=== PATIENT | female | born 1990 | race African-American/Black ===

== ENCOUNTER 2019-01-31 16:20 | Emergency (ER) | payer OTHER ==
--- NOTE | 2019-01-31 17:00 | ED Physician Documentation ---
History of Present Illness - Stated complaint Stated Complaint: ABDOMINAL PAIN, BLEEDING, CRAMPING - Chief complaint Chief Complaint: Abd Pain - Additonal information Additional information: This is a 28-year-old female who presents with abdominal pain and cramping. She estimates she is 5 weeks by LMP. On Sunday she began having some light spotting, this has progressed and now she is having lower abdominal cramping as well as as eating. She felt a little nauseated and when she stood up earlier today she felt slightly lightheaded, she called the nurse/clinic line and they told her to come into the emergency department to get checked out. She denies dysuria. She does not know her blood type. Review of Systems Constitutional: denies: Fever Cardiac: denies: Chest pain / pressure GI: reports: Abdominal Pain : denies: Dysuria PD PAST MEDICAL HISTORY - Past Medical History Past Medical History: No - Present Medications Home Medications: Ambulatory Orders Medication Instructions Recorded Confirmed Nitrofurantoin Monohyd/M-Cryst 100 mg PO BID #10 capsule 01/31/19 [Macrobid 100 mg Capsule] Ondansetron Odt [Zofran] 4 mg TL Q6H PRN #10 tablet 01/31/19 - Allergies Allergies/Adverse Reactions: Allergies Allergy/AdvReac Type Severity Reaction Status Date / Time No Known Drug Allergies Allergy Verified 01/31/19 16:34 - Living Situation Living Arrangement: reports: At home PD ED PE NORMAL - General General: Alert and oriented X 3 - Cardiac Cardiac: RRR - Respiratory Respiratory: No respiratory distress - Abdomen Abdomen: Soft, Non tender, Non distended - Extremities Extremities: No deformity - Neuro Neuro: Alert and oriented X 3 Results - Vitals Vitals: Oxygen O2 Source Room air - Labs Labs: Microbiology 01/31/19 20:40 Urine Culture - Preliminary Urine,Clean Catch Escherichia Coli Laboratory Tests 01/31/19 01/31/19 01/31/19 17:05 17:05 17:05 WBC 11.4 H RBC 4.35 Hgb 11.7 L Hct 37.6 MCV 86.4 MCH 26.9 L MCHC 31.1 L RDW 14.8 Plt Count 317 MPV 9.5 Neut # (Auto) 8.0 H Lymph # (Auto) 2.4 [place] # (Auto) 0.8 Eos # (Auto) 0.2 Baso # (Auto) 0.1 Absolute Nucleated RBC 0.00 Nucleated RBC % 0.0 Sodium 139 Potassium 3.6 Chloride 105 Carbon Dioxide 22 Anion Gap 12.0 BUN 10 Creatinine 0.7 Estimated GFR (MDRD) 119 Glucose 85 Calcium 9.1 Total Bilirubin 0.4 AST 22 ALT 20 Alkaline Phosphatase 59 Total Protein 8.4 H Albumin 4.3 Globulin 4.1 Albumin/Globulin Ratio 1.0 Lipase 22 HCG, Quant 19.83 Urine Color Urine Clarity Urine pH Ur Specific [place] Urine Protein Urine Glucose (UA) Urine Ketones Urine Occult Blood Urine Nitrite Urine Bilirubin Urine Urobilinogen Ur Leukocyte Esterase Urine RBC Urine WBC Ur Squamous Epith Cells Urine Bacteria Ur Microscopic Review Urine Culture Comments Blood Type 01/31/19 01/31/19 01/31/19 17:05 17:05 20:40 WBC RBC Hgb Hct MCV MCH MCHC RDW Plt Count MPV Neut # (Auto) Lymph # (Auto) [place] # (Auto) Eos # (Auto) Baso # (Auto) Absolute Nucleated RBC Nucleated RBC % Sodium Potassium Chloride Carbon Dioxide Anion Gap BUN Creatinine Estimated GFR (MDRD) Glucose Calcium Total Bilirubin AST ALT Alkaline Phosphatase Total Protein Albumin Globulin Albumin/Globulin Ratio Lipase HCG, Quant Urine Color Cancelled YELLOW Urine Clarity Cancelled HAZY Urine pH Cancelled 5.0 Ur Specific [place] Cancelled >=1.030 H Urine Protein Cancelled TRACE Urine Glucose (UA) Cancelled NEGATIVE Urine Ketones Cancelled TRACE Urine Occult Blood Cancelled LARGE H Urine Nitrite Cancelled POSITIVE H Urine Bilirubin Cancelled NEGATIVE Urine Urobilinogen Cancelled 0.2 (NORMAL) Ur Leukocyte Esterase Cancelled NEGATIVE Urine RBC TNTC H Urine WBC 11-25 H Ur Squamous Epith Cells FEW Squamous Urine Bacteria Many H Ur Microscopic Review Cancelled INDICATED Urine Culture Comments Cancelled INDICATED Blood Type O POSITIVE - Rads (name of study) OB Radiology: Other (No intrauterine gestational sac) PD MEDICAL DECISION MAKING - ED course Complexity details: considered differential (Miscarriage, threatened miscarriage, UTI, anemia) ED course: Pt presents with bleeding and cramping in early . US shows no IUP, HCG is very low at 20. Pt has a mild anemia, her bleeding is the level of a typical period for her and she is hemodynamically stable, she does not appear to have significant blood loss at this time. Blood type O+. On repeat exam she is well-appearing, has a benign abdominal exam. I discussed the likely diagnosis of miscarriage, and close OB follow up to ensure HCG trends to 0. and for follow up on anemia. I also discussed return precuations. Pt;s urine suggest UTI, we will treat with a course of abx. Pt agrees and was discharged home. Departure - Departure Disposition: Home, Self Care Clinical Impression: Miscarriage UTI (urinary tract infection) Qualifiers: Urinary tract infection type: acute cystitis Hematuria presence: without hematuria Qualified Code(s): N30.00 - Acute cystitis without hematuria Follow-Up: Your,OB [Other] (Follow-up by early next week for repeat hCG level and exam) Prescriptions: Nitrofurantoin Monohyd/M-Cryst [Macrobid 100 mg Capsule] 100 mg PO BID #10 ca psule Ondansetron Odt [Zofran] 4 mg TL Q6H PRN #10 tablet PRN Reason: Nausea / Vomiting Comments: You were seen today for cramping and bleeding, your ultrasound does not show signs of a fetus within the uterus, and your hCG level is very low, this is most likely a miscarriage. You should follow-up with your OB, and have your hCG checked within the next several days to ensure that it is downtrending appropriately and not due to an abnormal . Your urine shows potential signs of infection, please take the Macrobid as prescribed. You may take Tylenol, Zofran for your symptoms. If you are having continued heavy bleeding, or severe abdominal pain return to the emergency department Discharge Date/Time: 01/31/19 21:35
[2019-01-31 17:18] LABS: BASOPHILS # (AUTO) 0.1 10^3/uL (0.0-0.1); BASOPHILS % (AUTO) 0.4 %; EOSINOPHILS # (AUTO) 0.2 10^3/uL (0.0-0.7); EOSINOPHILS % (AUTO) 1.3 %; HGB - HEMOGLOBIN 11.7 g/dL (12.0-16.0); LYMPHOCYTES # (AUTO) 2.4 10^3/uL (1.5-3.5); LYMPHOCYTES % (AUTO) 20.9 %; MEAN CORPUSCULAR HEMOGLOBIN 26.9 pg (27.0-31.0); MEAN CORPUSCULAR HGB CONC 31.1 g/dL (32.0-36.0); MEAN CORPUSCULAR VOLUME 86.4 fL (81.0-99.0); MEAN PLATELET VOLUME 9.5 fL (7.9-10.8); MONOCYTES # (AUTO) 0.8 10^3/uL (0.0-1.0); MONOCYTES % (AUTO) 6.6 %; NEUTROPHILS % (AUTO) 70.3 %; PLT - PLATELET COUNT 317 10^3/uL (130-450); RED BLOOD COUNT 4.35 10^6/uL (4.20-5.40); RED CELL DISTRIBUTION WIDTH 14.8 % (12.0-15.0); WHITE BLOOD COUNT 11.4 x10^3/uL (4.8-10.8)
[2019-01-31 17:30] LABS: ALBUMIN 4.3 g/dL (3.2-5.5); BILIRUBIN,TOTAL 0.4 mg/dL (0.2-1.0); CALCIUM 9.1 mg/dL (8.5-10.3); CREATININE 0.7 mg/dL (0.4-1.0); TOTAL PROTEIN 8.4 g/dL (6.7-8.2)
--- NOTE | 2019-01-31 18:35 | Ultrasound Report ---
Reason: preg VB, 5 weeks EGA Procedure Date: 01/31/2019 Accession Number: [id number] / [id number] Procedure: US - OB First Trimester CPT Code: Final Report FULL RESULT: EXAM: FIRST TRIMESTER OBSTETRIC ULTRASOUND. (Less than 11 weeks) EXAM DATE: 01/31/2019 05:40 PM. CLINICAL HISTORY: Preg VB, 5 weeks EGA. LMP: Unknown. COMPARISONS: None. TECHNIQUE: Transabdominal and transvaginal ultrasound examination with static image documentation. ASSESSMENT: No intrauterine gestational sac. MATERNAL STRUCTURES: Uterus: Retroverted. Cervix: Closed. Right Ovary/Adnexa: Right ovary not seen due to overlying bowel gas. Left Ovary/Adnexa: The ovary measures 2.4 x 1.3 x 2.0 cm. Left ovarian cyst measures 1.3 x 0.8 x 0.7 cm. Free Fluid: Trace. Other: None. IMPRESSION: 1. No intrauterine gestational sac. 2. Right ovary not visualized due to overlying bowel gas. RADIA
[2019-01-31] MEDS ORDERED: ACETAMINOPHEN 325 MG TABLET PO STA (18:58)
[2019-01-31] MEDS ORDERED: ONDANSETRON ODT 4 MG TABLET TL STA (18:58)
[2019-01-31 20:44] LABS: BILIRUBIN,URINE NEGATIVE (NEGATIVE); GLUCOSE, URINE (UA) NEGATIVE (NEGATIVE); KETONES,URINE (UA) TRACE mg/dL (NEGATIVE); LEUKOCYTE ESTERASE, URINE NEGATIVE (NEGATIVE); NITRITE,URINE POSITIVE (NEGATIVE); OCCULT BLOOD,URINE LARGE (NEGATIVE); PROTEIN,URINE TRACE mg/dL (NEGATIVE); UROBILINOGEN,URINE 0.2 (NORMAL) E.U./dL (NORMAL)
[2019-01-31 20:47] LABS: CLARITY,URINE HAZY (CLEAR)
[2019-01-31 20:56] LABS: BACTERIA,URINE Many /HPF (None Seen); RBC,URINE TNTC /HPF (0-5); SQUAMOUS EPITHELIAL CELL,UR FEW Squamous (<= Few)
[2019-01-31 21:34] VITALS: BP 127/84
== END 2019-01-31 21:35 | disposition home or self-care (01) ==
LOC: ED 16:20
DX: O03.9 Complete or unspecified spontaneous abortion without complication (principal); N30.00 Acute cystitis without hematuria; D64.9 Anemia, unspecified
CPT/HCPCS: 36415; 76801; 76817; 80053; 81001; 83690; 84702; 85025; 86900; 86901; 87086; 87181; 99283; 99284; A9270; Q0162; 81003; 81025

== ENCOUNTER 2019-08-12 13:22 | Emergency (ER) | payer OTHER ==
[2019-08-12 14:14] LABS: BILIRUBIN,URINE NEGATIVE (NEGATIVE); GLUCOSE, URINE (UA) NEGATIVE (NEGATIVE); KETONES,URINE (UA) NEGATIVE (NEGATIVE); LEUKOCYTE ESTERASE, URINE NEGATIVE (NEGATIVE); NITRITE,URINE NEGATIVE (NEGATIVE); OCCULT BLOOD,URINE NEGATIVE (NEGATIVE); PROTEIN,URINE TRACE mg/dL (NEGATIVE); UROBILINOGEN,URINE 0.2 (NORMAL) E.U./dL (NORMAL)
[2019-08-12 14:16] LABS: CLARITY,URINE CLEAR (CLEAR); HCG UR QUAL POSITIVE
[2019-08-12 14:26] LABS: BASOPHILS % (AUTO) 0.3 %; EOSINOPHILS % (AUTO) 0.5 %; HGB - HEMOGLOBIN 11.2 g/dL (12.0-16.0); LYMPHOCYTES # (AUTO) 1.7 10^3/uL (1.5-3.5); LYMPHOCYTES % (AUTO) 19.2 %; MEAN CORPUSCULAR HEMOGLOBIN 26.7 pg (27.0-31.0); MEAN CORPUSCULAR HGB CONC 32.2 g/dL (32.0-36.0); MEAN CORPUSCULAR VOLUME 82.9 fL (81.0-99.0); MEAN PLATELET VOLUME 9.4 fL (7.9-10.8); MONOCYTES # (AUTO) 0.4 10^3/uL (0.0-1.0); MONOCYTES % (AUTO) 4.7 %; NEUTROPHILS # (AUTO) 6.4 10^3/uL (1.5-6.6); NEUTROPHILS % (AUTO) 74.8 %; PLT - PLATELET COUNT 280 10^3/uL (130-450); RED CELL DISTRIBUTION WIDTH 14.3 % (12.0-15.0); WHITE BLOOD COUNT 8.6 x10^3/uL (4.8-10.8)
--- NOTE | 2019-08-12 14:30 | ED Physician Documentation ---
History of Present Illness - Stated complaint Stated Complaint: ABD PX - Chief complaint Chief Complaint: Abd Pain - History obtained from History obtained from: Patient - History of Present Illness Timing: Yesterday Pain level max: 2 Pain level now: 0 - Additonal information Additional information: . states 7 weeks EGA. Nothing makes it better or worse. Had light spotting yesterday. No pain. Had a miscarriage approximately 6 months ago. Review of Systems Constitutional: denies: Fever, Chills GI: denies: Nausea, Vomiting, Diarrhea Skin: denies: Rash Musculoskeletal: denies: Neck pain, Back pain Neurologic: denies: Headache PD PAST MEDICAL HISTORY - Past Medical History Past Medical History: No - Past Surgical History Past Surgical History: No - Present Medications Home Medications: Ambulatory Orders Medication Instructions Recorded Confirmed Nitrofurantoin Monohyd/M-Cryst 100 mg PO BID #10 capsule 01/31/19 [Macrobid 100 mg Capsule] Ondansetron Odt [Zofran] 4 mg TL Q6H PRN #10 tablet 01/31/19 - Allergies Allergies/Adverse Reactions: Allergies Allergy/AdvReac Type Severity Reaction Status Date / Time No Known Drug Allergies Allergy Verified 08/12/19 13:30 - Social History Does the pt smoke?: No Smoking Status: Never smoker Does the pt drink ETOH?: No - Immunizations Immunizations: TDAP >10years/unknown PD ED PE NORMAL - Vitals Vital signs reviewed: Yes - General General: Alert and oriented X 3, No acute distress, Well developed/nourished - HEENT HEENT: Moist mucous membranes - Neck Neck: Supple, no meningeal sign - Cardiac Cardiac: RRR, Strong equal pulses - Respiratory Respiratory: No respiratory distress, Clear bilaterally - Abdomen Abdomen: Soft, Non tender, Non distended - Derm Derm: Warm and dry, No rash - Extremities Extremities: No edema - Neuro Neuro: Alert and oriented X 3 - Psych Psych: Normal mood, Normal affect Results - Vitals Vitals: Vital Signs - 24 hr 08/12/19 08/12/19 08/12/19 13:26 13:40 15:30 Temperature 36.3 C L Heart Rate 90 90 77 Respiratory 14 16 16 Rate Blood Pressure 138/79 H 135/78 H 110/72 O2 Saturation 100 100 98 08/12/19 16:46 Temperature Heart Rate 76 Respiratory 16 Rate Blood Pressure 110/77 O2 Saturation 100 Oxygen O2 Source Room air - Labs Labs: Laboratory Tests 08/12/19 08/12/19 08/12/19 13:34 14:20 15:50 WBC 8.6 RBC 4.20 Hgb 11.2 L Hct 34.8 L MCV 82.9 MCH 26.7 L MCHC 32.2 RDW 14.3 Plt Count 280 MPV 9.4 Neut # (Auto) 6.4 Lymph # (Auto) 1.7 [place] # (Auto) 0.4 Eos # (Auto) 0.0 Baso # (Auto) 0.0 Absolute Nucleated RBC 0.00 Nucleated RBC % 0.0 Sodium 134 L Potassium 3.1 L Chloride 103 Carbon Dioxide 23 Anion Gap 8.0 BUN 6 Creatinine 0.5 Estimated GFR (MDRD) 176 Glucose 104 H Calcium 9.0 Total Bilirubin 0.5 AST 18 ALT 15 Alkaline Phosphatase 51 Total Protein 7.6 Albumin 3.8 Globulin 3.8 Albumin/Globulin Ratio 1.0 Lipase 24 HCG, Quant Urine Color DARK YELLOW Urine Clarity CLEAR Urine pH 6.0 Ur Specific [place] >=1.030 H Urine Protein TRACE Urine Glucose (UA) NEGATIVE Urine Ketones NEGATIVE Urine Occult Blood NEGATIVE Urine Nitrite NEGATIVE Urine Bilirubin NEGATIVE Urine Urobilinogen 0.2 (NORMAL) Ur Leukocyte Esterase NEGATIVE Ur Microscopic Review NOT INDICATED Urine Culture Comments NOT INDICATED Urine HCG, Qual POSITIVE 08/12/19 15:50 WBC RBC Hgb Hct MCV MCH MCHC RDW Plt Count MPV Neut # (Auto) Lymph # (Auto) [place] # (Auto) Eos # (Auto) Baso # (Auto) Absolute Nucleated RBC Nucleated RBC % Sodium Potassium Chloride Carbon Dioxide Anion Gap BUN Creatinine Estimated GFR (MDRD) Glucose Calcium Total Bilirubin AST ALT Alkaline Phosphatase Total Protein Albumin Globulin Albumin/Globulin Ratio Lipase HCG, Quant 557794.00 Urine Color Urine Clarity Urine pH Ur Specific [place] Urine Protein Urine Glucose (UA) Urine Ketones Urine Occult Blood Urine Nitrite Urine Bilirubin Urine Urobilinogen Ur Leukocyte Esterase Ur Microscopic Review Urine Culture Comments Urine HCG, Qual - Rads (name of study) OB US Radiology: Prelim report reviewed, EMP read contemporaneously, See rad report (1. Single viable intrauterine at EGA 8 weeks 0 days with SHAYLA 03/23/2020 based on crown-rump length, which is concordant with clinical dates. 2. Assigned dating is SHAYLA 03/23/2020 based on current ultrasound. 3. Retroverted uterus with posterior subserosal fibroid. ) PD MEDICAL DECISION MAKING - ED course Complexity details: reviewed results, re-evaluated patient, considered differential, d/w patient ED course: 28-year-old female presents to the emergency department with vaginal spotting yesterday. She has a single viable IUP. No evidence of ectopic. Asymptomatic here. We will have her follow-up with her doctor for further care. Patient counseled regarding signs and symptoms for which I believe and urgent re- evaluation would be necessary. Patient with good understanding of and agreement to plan and is comfortable going home at this time This document was made in part using voice recognition software. While efforts are made to proofread this document, sound alike and grammatical errors may occur. Departure - Departure Disposition: 01 Home, Self Care Clinical Impression: Vaginal bleeding affecting early Condition: Good Instructions: ED Miscarriage Poss Follow-Up: CARINA MESSINA MD [Primary Care Provider] - Within 3 Days Comments: Your ultrasound shows an intrauterine with an estimated gestational age of 8 weeks and 0 days. Your hCG is 105,000. This should be repeated in 2 to 3 days to ensure it is increasing. Return if you worsen. Discharge Date/Time: 08/12/19 16:48
--- NOTE | 2019-08-12 15:47 | Ultrasound Report ---
Reason: + preg, vag bleed Procedure Date: 08/12/2019 Accession Number: [id number] / [id number] Procedure: US - OB First Trimester CPT Code: Final Report FULL RESULT: EXAM: FIRST TRIMESTER OBSTETRIC ULTRASOUND (Less than 11 weeks) EXAM DATE: 08/12/2019 02:33 PM. CLINICAL HISTORY: Positive , vaginal bleed. LMP: 06/21/2019. COMPARISONS: OB FIRST TRIMESTER 01/31/2019 5:40 PM. TECHNIQUE: Transabdominal and transvaginal ultrasound examination with static image documentation. CLINICAL DATES: EGA 7 weeks 3 days with SHAYLA 03/27/2020 based on LMP. ASSESSMENT: Gestational Sac: Single intrauterine. Mean gestational sac diameter: 27 mm = 7 weeks 5 days. Embryo: CRL (crown-rump length) 16 mm = 8 weeks 0 days. Cardiac activity: 178 beats per minute. Yolk sac: 4 mm. Amniotic fluid: Not accurately assessed at this gestational age. Early placenta: Not visible at this gestational age. Other: No perigestational fluid collection demonstrated. MATERNAL STRUCTURES: Uterus: Retroverted. Left posterior subserosal fibroid measuring 3.2 x 3.0 x 3.1 cm. Nabothian cyst. Cervix: Closed. Right Ovary/Adnexa: The ovary measures 2.4 x 3.5 x 4.4 cm, volume 19.3 cc. Corpus luteum cyst measuring 2.7 x 2.1 x 2.1 cm. Left Ovary/Adnexa: The ovary measures 2.4 x 1.4 x 2.0 cm, volume 3.5 cc. Unremarkable. Free Fluid: None. Other: None. IMPRESSION: 1. Single viable intrauterine at EGA 8 weeks 0 days with SHAYLA 03/23/2020 based on crown-rump length, which is concordant with clinical dates. 2. Assigned dating is SHAYLA 03/23/2020 based on current ultrasound. 3. Retroverted uterus with posterior subserosal fibroid. RADIA
[2019-08-12 16:09] LABS: ALBUMIN 3.8 g/dL (3.2-5.5); BILIRUBIN,TOTAL 0.5 mg/dL (0.2-1.0); CREATININE 0.5 mg/dL (0.4-1.0); TOTAL PROTEIN 7.6 g/dL (6.7-8.2)
[2019-08-12 16:48] VITALS: BP 110/77
== END 2019-08-12 16:48 | disposition home or self-care (01) ==
LOC: ED 13:22
DX: O20.9 Hemorrhage in early pregnancy, unspecified (principal); O34.11 Maternal care for benign tumor of corpus uteri, first trimester; D25.2 Subserosal leiomyoma of uterus; O09.291 Supervision of pregnancy with other poor reproductive or obstetric history, first trimester; Z3A.08 8 weeks gestation of pregnancy
CPT/HCPCS: 36415; 76801; 76817; 80053; 81001; 81003; 81025; 83690; 84702; 85025; 86900; 86901; 87086; 99284

== ENCOUNTER 2020-04-19 07:00 | Outpatient (CLI) | payer OTHER ==
[2020-04-19 16:32] LABS: MUDS CUTOFF CONCENTRATIONS CUTOFF CONC BELOW:
[2020-04-19 16:43] LABS: BILIRUBIN,URINE NEGATIVE (NEGATIVE); GLUCOSE, URINE (UA) NEGATIVE (NEGATIVE); KETONES,URINE (UA) NEGATIVE (NEGATIVE); LEUKOCYTE ESTERASE, URINE NEGATIVE (NEGATIVE); NITRITE,URINE NEGATIVE (NEGATIVE); OCCULT BLOOD,URINE NEGATIVE (NEGATIVE); PH,URINE 6.5 PH (5.0-7.5); PROTEIN,URINE NEGATIVE (NEGATIVE); UROBILINOGEN,URINE 0.2 (NORMAL) E.U./dL (NORMAL)
[2020-04-19 16:51] LABS: CLARITY,URINE CLEAR (CLEAR)
[2020-04-19 16:54] LABS: BACTERIA,URINE Moderate /HPF (None Seen); RBC,URINE None Seen /HPF (0-5); SQUAMOUS EPITHELIAL CELL,UR MANY Squamous (<= Few)
[2020-04-19 16:55] LABS: AMPHETAMINE SCREEN,URINE NEGATIVE (NEGATIVE); BENZODIAZEPINES SCREEN, URINE NEGATIVE (NEGATIVE); COCAINE SCREEN URINE NEGATIVE (NEGATIVE); METHADONE SCREEN, URINE NEGATIVE (NEGATIVE); METHAMPHETAMINES SCREEN, URINE NEGATIVE (NEGATIVE); OPIATE SCREEN, URINE NEGATIVE (NEGATIVE); OXYCODONE SCREEN, URINE NEGATIVE (NEGATIVE); PROPOXYPHENE SCREEN, URINE NEGATIVE (NEGATIVE); TRICYCLIC ANTIDEPRESSANT,URINE NEGATIVE (NEGATIVE)
== END 2020-04-19 23:59 | disposition home or self-care (01) ==
LOC: LAB.R 07:00
PROVIDERS: ATTEND Nurse Practitioner Obstetrics & Gynecology
DX: Z34.90 Encounter for supervision of normal pregnancy, unspecified, unspecified trimester (principal)
CPT/HCPCS: 80306; 80349; 81001; 81599; 87086

== ENCOUNTER 2020-04-23 19:13 | Outpatient (CLI) | payer OTHER ==
--- NOTE | 2020-04-23 20:44 | Ultrasound Report ---
PROCEDURE: OB First Trimester INDICATIONS: SUPERVISION OF NORMAL OUTSIDE/PRIOR DATING DATA: Last menstrual period (LMP): 02/07/2020. LMP-based estimated date of delivery (SHAYLA): 11/13/2020. First dating scan (date and location): 04/23/2020, [facility] Estimated date of delivery (SHAYLA) from first dating scan: 11/07/2020. TECHNIQUE: Real-time scanning was performed of the fetus and maternal pelvic organs, with image documentation. COMPARISON: None FINDINGS: There is a living first trimester intrauterine with a crown-rump length, yolk sa c, and heart beat. heartbeat is 160 bpm. Embryo: [place]-rump length measures 4.9 cm, 11 weeks 5 days Measurement variability in dating: +/- 4 weeks by LMP, +/- 7 days by mean sac diameter (use before 6 weeks gestation if crown-rump length not able to be measured), +/- 5 days by crown-rump length (6-12 weeks gestation). Maternal organs: Ovaries right ovary contains multiple cysts, the largest of which measures 5.1 x 3. 2 x 4.3 cm. There is a uterine fibroid which measures 2.8 x 2.3 x 2.9 cm.. IMPRESSION: Living first trimester intrauterine with crown-rump length and heart beat measuring 11 week s 5 days. Reviewed by: Guille Pennington MD on 04/23/2020 8:43 PM PST Approved by: Guille Pennington MD on 04/23/2020 8:43 PM PST Station ID: [id number]
== END 2020-04-23 19:14 | disposition home or self-care (01) ==
LOC: DI 19:13
PROVIDERS: ATTEND Nurse Practitioner Obstetrics & Gynecology
DX: Z34.90 Encounter for supervision of normal pregnancy, unspecified, unspecified trimester (principal)

== ENCOUNTER 2020-05-10 07:00 | Outpatient (CLI) | payer OTHER ==
[2020-05-10 21:59] LABS: TRICHOMONAS VAGINALIS DNA NEGATIVE (NEGATIVE)
== END 2020-05-10 23:59 | disposition home or self-care (01) ==
LOC: LAB.R 07:00
PROVIDERS: ATTEND Advanced Practice Midwife
DX: Z34.90 Encounter for supervision of normal pregnancy, unspecified, unspecified trimester (principal); Z11.3 Encounter for screening for infections with a predominantly sexual mode of transmission
CPT/HCPCS: 87491; 87591; 87661

== ENCOUNTER 2020-07-31 18:10 | Outpatient (CLI) | payer OTHER ==
--- NOTE | 2020-07-31 22:35 | Ultrasound Report ---
PROCEDURE: OB Detailed Eval INDICATIONS: ANATOMIC SCAN OUTSIDE/PRIOR DATING DATA: Last menstrual period (LMP): 02/07/2020. LMP-based estimated date of delivery (SHAYLA): 11/13/2020. First dating scan (date and location): 04/23/2020. Estimated date of delivery (SHAYLA) from first dating scan: 11/07/2020. TECHNIQUE: Real-time scanning was performed of the fetus, with image documentation and biometric measurements. Endovaginal scanning: Not needed COMPARISON: 04/23/2020 OB ultrasound FINDINGS: General: A single living intrauterine gestation is present. Presentation: Breech Placenta: Placental position is anterior, without previa. Amniotic fluid index: 18.9 cm, 83rd percentile for gestational age. heart rate: 149 beats per minute. Maternal cervical canal: 3.0 cm, closed; normal length is 2.5 cm or more. biometrics: Biparietal diameter: 6.8 cm, 27 weeks 2 days Head circumference: 24.4 cm, 26 weeks 3 days Abdominal circumference: 21.1 cm, 25 weeks 4 days Femur length: 4.8 cm, 26 weeks 0 days Estimated gestational age from initial scan: 25 weeks 0 days. Composite gestational age from present scan: 26 weeks 1 day Estimated weight and percentile: 872 g, 81st percentile Measurement variability in biometric dating: +/- 10 days from 12-20 weeks gestation, +/- 2 weeks from 20-30 weeks gestation, +/- 3 weeks at 30 weeks gestation or later. Anatomic survey: Neuro: Ventricles are normal at less than 10 mm. Cisterna magna is normal at 3-11 mm. Cerebellum i s normal in size and morphology. Nuchal skin fold: Normal at less than 6 mm between 14 and 20 weeks gestational age. Face: Nose and lips, facial profile are normal. Spine: No evidence for spina bifida. Heart: 4-chambered heart is present, with normal ventricular outflow tracts. Diaphragm: Diaphragm is intact. Stomach: Left-sided stomach is present. Kidneys: No hydronephrosis. Normal is less than 5 mm in 2nd trimester, less than 7 mm in 3rd trimester. Cord: 3 vessel cord has orthotopic insertion. Bladder: Normal in size. Extremities: All 4 extremities are visualized. IMPRESSION: A single living intrauterine gestation with appropriate interval growth and with normal amniotic flui d volume. No anomaly is seen. Reviewed by: Elías Cook MD on 07/31/2020 10:33 PM PDT Approved by: Elías Cook MD on 07/31/2020 10:33 PM PDT Station ID: [id number]
== END 2020-07-31 18:11 | disposition home or self-care (01) ==
LOC: DI 18:10
PROVIDERS: ATTEND Midwife
DX: Z36.9 Encounter for antenatal screening, unspecified (principal)

== ENCOUNTER 2020-10-06 08:00 | Outpatient (CLI) | payer OTHER | END 2020-10-06 23:59 | disposition home or self-care (01) | LOC: LAB.N 08:00 | PROVIDERS: ATTEND Family Medicine | DX: R82.90 Unspecified abnormal findings in urine (principal) | CPT/HCPCS: 87077; 87086; 87181 ==

== ENCOUNTER 2020-10-22 17:30 | Outpatient (CLI) | payer OTHER ==
[2020-10-22 19:23] LABS: BILIRUBIN,URINE NEGATIVE (NEGATIVE); GLUCOSE, URINE (UA) NEGATIVE (NEGATIVE); KETONES,URINE (UA) NEGATIVE (NEGATIVE); LEUKOCYTE ESTERASE, URINE NEGATIVE (NEGATIVE); NITRITE,URINE NEGATIVE (NEGATIVE); OCCULT BLOOD,URINE NEGATIVE (NEGATIVE); PH,URINE 7.5 PH (5.0-7.5); PROTEIN,URINE NEGATIVE (NEGATIVE); UROBILINOGEN,URINE 4 E.U./dL (NORMAL)
[2020-10-22 19:24] LABS: CLARITY,URINE CLEAR (CLEAR)
== END 2020-10-22 23:59 | disposition home or self-care (01) ==
LOC: LAB.R 17:30
PROVIDERS: ATTEND Midwife
DX: O23.593 Infection of other part of genital tract in pregnancy, third trimester (principal); O23.13 Infections of bladder in pregnancy, third trimester
CPT/HCPCS: 81001; 81003; 87070; 87077; 87086; 87181

== ENCOUNTER 2020-10-28 15:04 | Emergency (ER) | payer OTHER ==
--- NOTE | 2020-10-28 16:19 | ED Physician Documentation ---
History of Present Illness - Stated complaint Stated Complaint: POST OP PX - Chief complaint Chief Complaint: General - History obtained from History obtained from: Patient - Additonal information Additional information: Patient comes emergency department chief complaint of pelvic pain 5 days . Patient states she had a home and had no complications with the or the . She states that she has not had any fevers or chills. No dysuria. She states that her lochia had decreased To just brownish discharge, but has increased again a little bit and turned red. No other d ischarge. No foul smell that is different than the usual smell of blood. No dysuria. Patient states that when she breast-feeds, she can feel her uterus contracted and it does not cause more pain. No nausea or vomiting. Patient has not had any follow-up with an BLEACH MAKER. She has had 2 other vaginal births, both in the hospital but the last of these was 9 years ago. No other complaints at this time. Review of Systems Ten Systems: 10 systems reviewed and negative Constitutional: reports: Reviewed and negative Eyes: reports: Reviewed and negative Ears: reports: Reviewed and negative Nose: reports: Reviewed and negative Throat: reports: Reviewed and negative Cardiac: reports: Reviewed and negative Respiratory: reports: Reviewed and negative GI: reports: Abdominal Pain : reports: Vaginal bleeding Skin: reports: Reviewed and negative Musculoskeletal: reports: Reviewed and negative Neurologic: reports: Reviewed and negative Psychiatric: reports: Reviewed and negative Endocrine: reports: Reviewed and negative Immunocompromised: reports: Reviewed and negative PD PAST MEDICAL HISTORY - Past Medical History Past Medical History: No - Past Surgical History Past Surgical History: No - Present Medications Home Medications: Ambulatory Orders Medication Instructions Recorded Confirmed Nitrofurantoin Monohyd/M-Cryst 100 mg PO BID #10 capsule 01/31/19 [Macrobid 100 mg Capsule] Ondansetron Odt [Zofran] 4 mg TL Q6H PRN #10 tablet 01/31/19 HYDROcod/ACETAM 5/325 [[place] 5/325] 1 - 2 tablet PO QPM PRN #4 tablet 10/28/20 - Allergies Allergies/Adverse Reactions: Allergies Allergy/AdvReac Type Severity Reaction Status Date / Time No Known Drug Allergies Allergy Verified 08/12/19 13:30 - Social History Does the pt smoke?: No Smoking Status: Never smoker Does the pt drink ETOH?: No Does the pt have substance abuse?: No - Immunizations Immunizations are current?: Yes Immunizations: TDAP >10years/unknown - POLST Patient has POLST: No PD ED PE NORMAL - Vitals Vital signs reviewed: Yes - General General: Alert and oriented X 3, No acute distress, Well developed/nourished - HEENT HEENT: Atraumatic, PERRL, EOMI, Moist mucous membranes - Neck Neck: Supple, no meningeal sign - Cardiac Cardiac: RRR, No murmur - Respiratory Respiratory: No respiratory distress, Clear bilaterally - Abdomen Abdomen: Soft, Non tender, Other (Post gravid abdomen, soft. No tenderness. No rebound or guarding.) - Derm Derm: Normal color, Warm and dry, No rash - Extremities Extremities: No deformity, No edema - Neuro Neuro: Alert and oriented X 3, emergency room registered nurse 2-12 intact, Normal speech - Psych Psych: Normal mood, Normal affect Results - Vitals Vitals: Vital Signs - 24 hr 10/28/20 15:52 Temperature 36.8 C Heart Rate 88 Respiratory 14 Rate Blood Pressure 128/78 O2 Saturation 98 Oxygen O2 Source Room air PD MEDICAL DECISION MAKING - ED course Complexity details: reviewed results, re-evaluated patient, considered differential, d/w patient ED course: I discussed with the patient that she is afebrile and has a fairly benign abdominal exam and not entirely certain why she is feeling so much pain, especially since she has mostly been laying down since her baby was born 5 days ago. However, since The degree of care for this patient is uncertain and she does not have any specific follow-up, I did order an ultrasound of the pelvis as well as a urinalysis. Patient is breast-feeding and this is a consideration in terms of pain control. Has already been using ibuprofen and Tylenol at home without adequate relief she states. Studies are pending at this time. Patient signed out to oncoming provider pending ultrasound and urinalysis. She will be given a prescription for 3 evenings worth of Vicodin to take as needed. She understands that there is a small chance that some of the medication will come through her breastmilk, though this is not expected to be a large amount. Departure - Departure Clinical Impression: pain Condition: Stable Instructions: Vaginal After Prescriptions: HYDROcod/ACETAM 5/325 [[place] 5/325] 1 - 2 tablet PO QPM PRN #4 tablet PRN Reason: Pain Comments: You have been prescribed hydrocodone to take in the evening if your pain is acting up. You should not take this for more than the next several days. You may take 1 tablet before bed to help with the discomfort. Please be aware that a small amount of this medication can into the breastmilk and while it is unlikely that enough will enter to have a significant effect on your baby, it is most ideal that you take the medication only if absolutely needed. It is best to try ibuprofen first and see if this is sufficient to relieve your discomfort. If you continue to have discomfort in your low abdomen beyond the next several days, you should make an appointment with OB paediatric thoracic physician to follow-up.
--- NOTE | 2020-10-28 18:35 | Ultrasound Report ---
PROCEDURE: Pelvic w/Doppler Limited INDICATIONS: post- pelvic pain TECHNIQUE: Real-time transabdominal scanning was performed of the pelvic organs, with image documentation. COMPARISON: 04/23/2020 FINDINGS: Uterus: Uterus is anteverted and enlarged as expected . Measuring 16.3 x 8.5 x 12.4 cm. Th e endometrium is approximately 7 mm in thickness and there is no retained fluid, mass, or abnormal va scular flow by color imaging. The left anterior subserosal uterine fibroid is seen measuring 3.4 x 2. 5 x 2.8 cm, fairly similar compared to a prior study. No other myometrial mass. Ovaries: The right ovary measures 5.3 x 2.6 x 2.6 cm for a volume of 18.7 cc. Normal vascular flow i s present. No dominant follicles. The left ovary measures 3.1 x 1.7 x 2.2 cm for a volume of 6.3 cc. It demonstrates a normal echotextu re and vascularity as well. Other: No free pelvic fluid. No suspicious adnexal masses. IMPRESSION: 1. Normal appearance of the immediately uterus. No evidence of retained products of concep tion or suspicious fluid collections. 2. Appropriate vascularity in each ovary and no paraovarian fluid to suggest torsion. 3. Preliminary results given by the sales representative [employer] to the ordering provider. Reviewed by: Abiola Horn MD on 10/28/2020 6:34 PM PDT Approved by: Abiola Horn MD on 10/28/2020 6:34 PM PDT Station ID: [id number]
[2020-10-28 18:52] LABS: BILIRUBIN,URINE NEGATIVE (NEGATIVE); CLARITY,URINE HAZY (CLEAR); GLUCOSE, URINE (UA) NEGATIVE (NEGATIVE); KETONES,URINE (UA) NEGATIVE (NEGATIVE); LEUKOCYTE ESTERASE, URINE SMALL (NEGATIVE); NITRITE,URINE NEGATIVE (NEGATIVE); OCCULT BLOOD,URINE LARGE (NEGATIVE); PH,URINE 6.5 PH (5.0-7.5); PROTEIN,URINE NEGATIVE (NEGATIVE); UROBILINOGEN,URINE 0.2 (NORMAL) E.U./dL (NORMAL)
[2020-10-28] MEDS ORDERED: HYDROmorphone 1 MG/ML CARPUJECT IM STA (18:52)
[2020-10-28] MEDS ORDERED: KETOROLAC 15 MG/ML VIAL IM STA (18:52)
[2020-10-28 19:07] LABS: BACTERIA,URINE Moderate /HPF (None Seen); MUCUS,URINE Few Strands; SQUAMOUS EPITHELIAL CELL,UR MOD Squamous (<= Few)
[2020-10-28] MEDS ORDERED: NITROFURANTOIN MACRO 100 MG CAPSULE PO STA (19:14)
--- NOTE | 2020-10-28 19:22 | ED Physician Documentation ---
ED Addendum - Addendum Addendum: 10/28/20 19:[address] Berumen at shift change. Briefly this is a 29-year-old woman who is a few days out from a vaginal delivery who presents with pelvic pain. See her note for details. At the time of signout the ultrasound and urinalysis were pending. The ultrasound was without pertinent positive findings. Urinalysis consistent with cystitis, we will treat with Macrobid. Dr. Berumen also gave a prescription for hydrocodone. Disposition: Discharged home Condition: Stable Diagnosis: 1. Pelvic pain number 2. 3. Cystitis
[2020-10-28 19:58] VITALS: BP 128/74
== END 2020-10-28 19:30 | disposition home or self-care (01) ==
LOC: ED 15:04
DX: O99.893 Other specified diseases and conditions complicating puerperium (principal); N30.90 Cystitis, unspecified without hematuria
CPT/HCPCS: 76856; 81001; 93976; 96372; 99284; A9270; J1170; 81003; 87086

== ENCOUNTER 2022-02-10 17:35 | Emergency (ER) | payer OTHER ==
--- NOTE | 2022-02-10 18:01 | ED Physician Documentation ---
History of Present Illness - Stated complaint Stated Complaint: CRAMPING - Chief complaint Chief Complaint: Abd Pain - History obtained from History obtained from: Patient - History of Present Illness Timing: Today Pain level max: 1 Pain level now: 1 - Additonal information Additional information: Patient is a 31-year-old female 8 para 3 who presents to the emergency department with spotting. She thinks she is about 4 to 5 weeks . Has mild abdominal cramping. Light spotting. Nothing makes it better or worse. Review of Systems Constitutional: denies: Fever, Chills Respiratory: denies: Cough GI: denies: Vomiting, Diarrhea Skin: denies: Rash Musculoskeletal: denies: Neck pain, Back pain Neurologic: denies: Headache PD PAST MEDICAL HISTORY - Past Medical History Past Medical History: No - Past Surgical History Past Surgical History: No - Present Medications Home Medications: Ambulatory Orders Medication Instructions Recorded Confirmed No Known Home Medications 02/10/22 02/10/22 - Allergies Allergies/Adverse Reactions: Allergies Allergy/AdvReac Type Severity Reaction Status Date / Time No Known Drug Allergies Allergy Verified 02/10/22 17:46 - Social History Does the pt smoke?: No Smoking Status: Never smoker Does the pt drink ETOH?: No Does the pt have substance abuse?: No - Immunizations Immunizations are current?: Yes Immunizations: TDAP >10years/unknown - POLST Patient has POLST: No PD ED PE NORMAL - Vitals Vital signs reviewed: Yes - General General: Alert and oriented X 3, No acute distress - HEENT HEENT: PERRL, Moist mucous membranes - Neck Neck: Supple, no meningeal sign - Cardiac Cardiac: RRR, Strong equal pulses - Respiratory Respiratory: No respiratory distress, Clear bilaterally - Abdomen Abdomen: Soft, Non tender, Non distended - Derm Derm: Warm and dry - Extremities Extremities: No edema - Neuro Neuro: Alert and oriented X 3 - Psych Psych: Normal mood, Normal affect Results - Vitals Vitals: Vital Signs - 24 hr 02/10/22 02/10/22 17:43 19:21 Temperature 36.6 C Heart Rate 102 H 90 Respiratory 16 18 Rate Blood Pressure 135/80 H 123/83 H O2 Saturation 100 100 Oxygen O2 Source Room air - Labs Labs: Laboratory Tests 02/10/22 02/10/22 02/10/22 17:58 17:58 17:58 WBC 10.8 RBC 4.46 Hgb 12.9 Hct 40.0 MCV 89.7 MCH 28.9 MCHC 32.3 RDW 13.2 Plt Count 306 MPV 9.0 Neut # (Auto) 7.4 H Lymph # (Auto) 2.5 Luna # (Auto) 0.6 Eos # (Auto) 0.2 Baso # (Auto) 0.1 Absolute Nucleated RBC 0.00 Nucleated RBC % 0.0 Sodium 135 Potassium 3.5 Chloride 101 Carbon Dioxide 24 Anion Gap 10.0 BUN 9 Creatinine 0.6 Estimated GFR (MDRD) 140 Glucose 172 H Calcium 9.5 Total Bilirubin 0.5 AST 16 ALT 26 Alkaline Phosphatase 67 Total Protein 8.0 Albumin 4.2 Globulin 3.8 Albumin/Globulin Ratio 1.1 Lipase 33 HCG, Quant 591.03 Urine Color Urine Clarity Urine pH Ur Specific [place] Urine Protein Urine Glucose (UA) Urine Ketones Urine Occult Blood Urine Nitrite Urine Bilirubin Urine Urobilinogen Ur Leukocyte Esterase Ur Microscopic Review Urine Culture Comments 02/10/22 18:40 WBC RBC Hgb Hct MCV MCH MCHC RDW Plt Count MPV Neut # (Auto) Lymph # (Auto) Luna # (Auto) Eos # (Auto) Baso # (Auto) Absolute Nucleated RBC Nucleated RBC % Sodium Potassium Chloride Carbon Dioxide Anion Gap BUN Creatinine Estimated GFR (MDRD) Glucose Calcium Total Bilirubin AST ALT Alkaline Phosphatase Total Protein Albumin Globulin Albumin/Globulin Ratio Lipase HCG, Quant Urine Color YELLOW Urine Clarity CLEAR Urine pH 6.0 Ur Specific [place] 1.010 Urine Protein NEGATIVE Urine Glucose (UA) NEGATIVE Urine Ketones NEGATIVE Urine Occult Blood NEGATIVE Urine Nitrite NEGATIVE Urine Bilirubin NEGATIVE Urine Urobilinogen 0.2 (NORMAL) Ur Leukocyte Esterase NEGATIVE Ur Microscopic Review NOT INDICATED Urine Culture Comments NOT INDICATED - Rads (name of study) OB ultrasound Radiology: Final report received, EMP read contemporaneously, See rad report PD MEDICAL DECISION MAKING - ED course Complexity details: reviewed results, re-evaluated patient, considered differential, d/w patient, d/w family ED course: Patient is a 31-year-old female, presents with a positive test and mild pelvic cramping and bleeding. Possible intrauterine gestational sac seen on ultrasound. hCG level is only 591. We will have her follow-up with OB for repeat hCG and possible repeat ultrasound. Symptoms not consistent with ectopic at this time. Ectopic precautions given at bedside. Patient counseled regarding signs and symptoms for which I believe and urgent re-evaluation would be necessary. Patient with good understanding of and agreement to plan and is comfortable going home at this time This document was made in part using voice recognition software. While efforts are made to proofread this document, sound alike and grammatical errors may occur. IMPRESSION: Questionable intrauterine gestational sac and therefore cannot definitively exclude ectopic . No heartbeat is identified. Recommend following serial hCG and repeat ultrasound. Departure - Departure Disposition: 01 Home, Self Care Clinical Impression: Vaginal bleeding affecting early Condition: Good Instructions: ED Miscarriage Poss Follow-Up: [facility] [Provider Group] Comments: Please follow-up with your doctor in 3 days for repeat hCG level. Her hCG is 591 tonight. Please return if you worsen. This could represent an early versus an early miscarriage. The repeat hCG level will help to determine if this is a or miscarriage. Discharge Date/Time: 02/10/22 19:21
[2022-02-10 18:04] LABS: BASOPHILS # (AUTO) 0.1 10^3/uL (0.0-0.1); BASOPHILS % (AUTO) 0.6 %; EOSINOPHILS # (AUTO) 0.2 10^3/uL (0.0-0.7); EOSINOPHILS % (AUTO) 1.6 %; HGB - HEMOGLOBIN 12.9 g/dL (12.0-16.0); LYMPHOCYTES # (AUTO) 2.5 10^3/uL (1.5-3.5); LYMPHOCYTES % (AUTO) 23.1 %; MEAN CORPUSCULAR HEMOGLOBIN 28.9 pg (27.0-31.0); MEAN CORPUSCULAR HGB CONC 32.3 g/dL (32.0-36.0); MEAN CORPUSCULAR VOLUME 89.7 fL (81.0-99.0); MONOCYTES # (AUTO) 0.6 10^3/uL (0.0-1.0); MONOCYTES % (AUTO) 5.9 %; NEUTROPHILS # (AUTO) 7.4 10^3/uL (1.5-6.6); NEUTROPHILS % (AUTO) 68.3 %; PLT - PLATELET COUNT 306 10^3/uL (130-450); RED BLOOD COUNT 4.46 10^6/uL (4.20-5.40); RED CELL DISTRIBUTION WIDTH 13.2 % (12.0-15.0); WHITE BLOOD COUNT 10.8 x10^3/uL (4.8-10.8)
[2022-02-10 18:20] LABS: ALBUMIN 4.2 g/dL (3.2-5.5); ALBUMIN/GLOBULIN RATIO 1.1 (1.0-2.2); BILIRUBIN,TOTAL 0.5 mg/dL (0.2-1.0); CALCIUM 9.5 mg/dL (8.5-10.3); CREATININE 0.6 mg/dL (0.4-1.0); POTASSIUM 3.5 mmol/L (3.5-5.0)
[2022-02-10 19:00] LABS: BILIRUBIN,URINE NEGATIVE (NEGATIVE); GLUCOSE, URINE (UA) NEGATIVE (NEGATIVE); KETONES,URINE (UA) NEGATIVE (NEGATIVE); LEUKOCYTE ESTERASE, URINE NEGATIVE (NEGATIVE); NITRITE,URINE NEGATIVE (NEGATIVE); OCCULT BLOOD,URINE NEGATIVE (NEGATIVE); PROTEIN,URINE NEGATIVE (NEGATIVE); UROBILINOGEN,URINE 0.2 (NORMAL) E.U./dL (NORMAL)
[2022-02-10 19:01] LABS: CLARITY,URINE CLEAR (CLEAR)
--- NOTE | 2022-02-10 19:17 | Ultrasound Report ---
PROCEDURE: OB First Trimester w/TV INDICATIONS: 4 weeks preg vag bleed OUTSIDE/PRIOR DATING DATA: Last menstrual period (LMP): 01/10/2022. TECHNIQUE: Real-time scanning was performed of the fetus and maternal pelvic organs, with image documentation. Endovaginal scanning was also performed to better visualize the fetus and maternal ovaries. COMPARISON: None FINDINGS: Questionable intrauterine gestational sac is not well seen corresponding with a 5 week 1 d ay . No heart beat is identified. Measurement variability in dating: +/- 4 weeks by LMP, +/- 7 days by mean sac diameter (use before 6 weeks gestation if crown-rump length not able to be measured), +/- 5 days by crown-rump length (6-12 weeks gestation). Maternal organs: Ovaries demonstrate a right corpus luteal cyst. IMPRESSION: Questionable intrauterine gestational sac and therefore cannot definitively exclude ectop ic . No heartbeat is identified. Recommend following serial hCG and repeat ultrasound. Reviewed by: Dat Abebe on 02/10/2022 7:16 PM PST Approved by: Dat Abebe on 02/10/2022 7:16 PM PST Station ID: [id number]
[2022-02-10 19:23] VITALS: BP 123/83
== END 2022-02-10 19:21 | disposition home or self-care (01) ==
LOC: ED 17:35
DX: O20.9 Hemorrhage in early pregnancy, unspecified (principal); Z3A.01 Less than 8 weeks gestation of pregnancy
CPT/HCPCS: 36415; 80053; 81001; 81003; 83690; 84702; 85025; 87086; 99282; 99284